=== PATIENT | female | born 1990 | race Caucasian/White ===

== ENCOUNTER 2021-09-30 10:18 | Emergency (ER) | payer SELFPAY ==
[2021-09-30] MEDS ORDERED: Lidocaine 2% PF 5 ML VIAL ONE ×2 (10:40→10:41)
[2021-09-30] MEDS ORDERED: Bacitracin 1 PK ONE (10:42)
[2021-09-30] MEDS ORDERED: Boostrix 0.5 ML (Tdap) VIAL ONE (11:12)
== END 2021-09-30 11:30 | disposition home or self-care (01) ==
LOC: BURERS 10:18
DX: S01.01XA Laceration without foreign body of scalp, initial encounter (principal); S09.90XA Unspecified injury of head, initial encounter; F17.210 Nicotine dependence, cigarettes, uncomplicated; W18.2XXA Fall in (into) shower or empty bathtub, initial encounter; Y92.002 Bathroom of unspecified non-institutional (private) residence as the place of occurrence of the external cause; Z23 Encounter for immunization
CPT/HCPCS: 12002; 70450; 90471; 90715; J2001

== ENCOUNTER 2021-10-11 19:25 | Emergency (ER) | payer SELFPAY | END 2021-10-11 19:37 | disposition home or self-care (01) | LOC: BURERS 19:25 | DX: S01.01XD Laceration without foreign body of scalp, subsequent encounter (principal); F17.210 Nicotine dependence, cigarettes, uncomplicated ==